=== PATIENT | female | born 1965 | race Caucasian/White ===

== ENCOUNTER 2019-06-11 10:49 | Emergency (ER) | payer OTHER ==
[2019-06-11 12:28] VITALS: BP 113/78
--- NOTE | 2019-06-11 12:33 | UC ---
Truncal Trauma HPI - HPI Summary HPI Summary: WHILE AT WORK YESTERDAY PATIENT TRIPPED ON UNEVEN PAVEMENT AND ROLLED ONTO HER RIGHT SIDE INJURING HER RIGHT ANTERIOR RIB CAGE. DENIES ANY FEVER OR SHORTNESS OF BREATH. PAIN WORSENS WITH MOVEMENT. NOT WORSE WITH DEEP INSPIRATION OR COUGH. - History Of Current Complaint Chief Complaint: UCGeneralIllness Stated Complaint: RIB/CHEST PAIN WC Time Seen by Provider: 06/11/19 11:33 Hx Obtained From: Patient Hx Last Menstrual Period: 04/04/14 Onset/Duration: Sudden Onset, Lasting Days - 1 DAY, Still Present Onset Of Pain: Immediate Severity Initially: Moderate Severity Currently: Moderate Pain Intensity: 5 Pain Scale Used: 0-10 Numeric Mechanism Of Injury: Fall From A Standing Position Aggravating Factor(s): Movement Alleviating factor(s): Rest Associated Signs And Symptoms: Positive: Negative - Allergies/Home Medications Allergies/Adverse Reactions: Allergies Allergy/AdvReac Type Severity Reaction Status Date / Time cephalexin [From Keflex] Allergy Hives Verified 06/11/19 11:51 Sulfa (Sulfonamide Allergy Hives Verified 06/11/19 11:51 Antibiotics) Home Medications: Home Medications Sertraline* [Zoloft*] 50 mg PO DAILY 11/06/18 [History Confirmed 06/11/19] Ibuprofen TAB* [Advil TAB*] 600 mg PO ONCE 06/11/19 [History Confirmed 06/11/19] PMH/Surg Hx/FS Hx/Imm Hx Neurological History: Other - UNSPECIFIED NEUROLOGIC CONDITION Psychological History: Depression - Surgical History Surgical History: Yes Surgery Procedure, Year, and Place: 2008 Benign RT breast lump REMOVED;. 2003 C -section; - Social History Alcohol Use: None Substance Use Type: None Smoking Status (MU): Never Smoked Tobacco Review of Systems All Other Systems Reviewed And Are Negative: Yes Constitutional: Positive: Negative Skin: Positive: Negative Respiratory: Positive: Negative Cardiovascular: Positive: Negative Gastrointestinal: Positive: Negative Musculoskeletal: Positive: Other: - RIGHT RIB CAGE PAIN Physical Exam Triage Information Reviewed: Yes Appearance: Well-Appearing, No Pain Distress, Well-Nourished Vital Signs: Initial Vital Signs Temp 97.4 F 06/11/19 11:52 Pulse 56 06/11/19 11:52 Resp 16 06/11/19 11:52 BP 113/78 06/11/19 11:52 Pulse Ox 98 06/11/19 11:52 Vital Signs Reviewed: Yes Eyes: Positive: Conjunctiva Clear ENT: Positive: Hearing grossly normal Neck: Positive: Supple Respiratory: Positive: No respiratory distress, No accessory muscle use Cardiovascular: Positive: Pulses Normal Abdomen Description: Positive: Soft Musculoskeletal: Positive: ROM Intact, No Edema, Other: - MILDLY TENDER RIGHT ANTERIOR RIB CAGE Neurological: Positive: Alert Psychological: Positive: Age Appropriate Behavior Skin: Negative: Rashes Truncal Trauma Course/Dx - Course Course Of Treatment: PATIENTS PRESENTATION IS MORE CONSISTENT WITH A CONTUSION OF THE RIGHT RIBS THAN WITH ANY ACUTE BONY INJURY. PATIENT HAS NO PAIN WITH DEEP INSPIRATION OR COUGH. MILD PAIN WITH PALPATION TO THE INJURED AREA AND WITH MOVEMENT. NO BRUISING ON EXAM. NO INDICATION FOR ANY IMAGING TODAY. ADVISED PATIENT TO RETURN FOR REEVALUATION IF HER SYMPTOMS DO NOT IMPROVE SHE MAY BENEFIT FROM IMAGING AT THAT TIME. ADVISED REST, DEEP BREATHS TO KEEP LUNGS EXPANDED AND OTC MEDS NEEDED FOR DISCOMFORT. OF NOTE, PATIENT REPORTS EXPOSURE TO A [employer] WHO IS CURRENTLY BEING TESTED FOR COVID19. A RESULT MY ENCOUNTER WITH THIS PATIENT WAS PERFORMED WITH FULL DROPLET/CONTACT PRECAUTION PPE. - Differential Dx/Diagnosis Provider Diagnosis: Contusion of rib on right side Discharge ED - Sign-Out/Discharge Documenting (check all that apply): Patient Departure All imaging exams completed and their final reports reviewed: No Studies - Discharge Plan Condition: Stable Disposition: HOME Patient Education Materials: Rib Contusion (ED) Forms: *Gen. Provider Communication Referrals: Elke Artis OIL DEVELOPER [Primary Care Provider] - If Needed Additional Instructions: YOUR PRESENTATION IS MORE CONSISTENT WITH A SOFT TISSUE INJURY/CONTUSION THAN WITH ANY ACUTE BONY INJURY. NO INDICATION FOR IMAGING TODAY. SEEK REEVALUATION IF YOUR PAIN PERSISTS OR WORSENS YOU MAY BENEFIT FROM IMAGING AT THAT TIME. REST, OTC MEDS NEEDED FOR DISCOMFORT. RIB INJURIES AND FRACTURES: You have been diagnosed as having either bruised or broken ribs. These two injuries are treated in the same way. It will usually take four to six weeks for these injured ribs to heal. Sometimes, rib belts or anesthetic injections of the chest wall help reduce the pain. You should cough or take a deep breath at least every hour or two to prevent lung complications. You should not engage in any strenuous physical activity until released by your physician. The usual rule is "if it hurts, don't do it." Rib fractures can lead to serious lung complications including lung collapse, hemorrhage, and pneumonia. You should go to the ED if any of the following occur: (1) Fever or chills. (2) Persistent cough, coughing up blood, or shortness of breath. (3) Increasing pain. (4) Weakness, lightheadedness, or fainting. Be sure to take slow deep breaths several times daily to help keep your lungs expanded. GO TO THE ER WITHOUT FAIL IF YOU DEVELOP WORSENING SHORTNESS OF BREATH, CHEST PAIN, NAUSEA, SWEATS, DIZZINESS OR ANY OTHER CONCERNING SYMPTOMS. - Billing Disposition and Condition Condition: STABLE Disposition: Home
== END 2019-06-11 12:50 | disposition home or self-care (01) ==
LOC: UCCORT 10:49
DX: S20.211A Contusion of right front wall of thorax, initial encounter (principal); W01.0XXA Fall on same level from slipping, tripping and stumbling without subsequent striking against object, initial encounter; Y92.480 Sidewalk as the place of occurrence of the external cause; Y99.0 Civilian activity done for income or pay; F32.9 Major depressive disorder, single episode, unspecified; Z79.899 Other long term (current) drug therapy; Z88.1 Allergy status to other antibiotic agents; Z88.2 Allergy status to sulfonamides
CPT/HCPCS: 99211; G0463

== ENCOUNTER 2019-06-11 10:56 | Emergency (ER) | payer OTHER ==
--- OUTSIDE RECORDS SUMMARY | 2019-06-11 11:43 | XMS REPORT | Summary of Care ---
:1965 Author Organization [facility] Address [address] [place] [address] Care Team Providers Name Role Phone Elke Artis NP Primary Care Provider Reason for Referral Diagnostic Radiology (Routine) Status Reason Specialty Diagnoses / Referred By Referred To Procedures Contact Contact Authorized Radiology Diagnoses White matter disease Abnormal brain MRI Essential tremor Elke Artis Procedures MR Brain with and without Contrast MR Brain with and without Contrast MALLY Jasso [address] [place] [address] Reason for Visit Diagnostic Radiology (Routine) Status Reason Specialty Diagnoses / Referred By Referred To Procedures Contact Contact Authorized Radiology Diagnoses White matter disease Abnormal brain MRI Essential tremor Elke Artis Procedures MR Brain with and without Contrast MR Brain with and without Contrast MALLY Jasso [address] [place] [address] Encounter Details Date Type Department Care Team Description 05/25/2019 Hospital Encounter MRI Radiology Cancer White matter disease; Center Abnormal brain MRI; [address] [place] [address] Allergies Not on Filedocumented as of this encounter (statuses as of 05/26/2019) Medications Not on filedocumented as of this encounter (statuses as of 05/26/2019) Active Problems Not on filedocumented as of this encounter (statuses as of 05/26/2019) Social History Tobacco Use Types Packs/Day Years Used Date Never Assessed Sex Assigned at Date Recorded Not on file Job Start Date Occupation Industry Not on file Not on file Not on file Travel History Travel Start Travel End No recent travel history available. documented as of this encounter Last Filed Vital Signs Not on filedocumented in this encounter Plan of Treatment Name Type Priority Associated Diagnoses Date/Time MR Brain with and Imaging Routine White matter disease 05/25/2019 1:49 PM without Contrast Abnormal brain MRI EDT Essential tremor Health Maintenance Due Date Last Done Comments MMR Vaccines (1 of 1 - Standard 09/30/1967 series) Varicella Vaccines (1 of 2 - 09/30/1967 2-dose childhood series) DTaP,Tdap,and Td Vaccines (1 - 1973 Tdap) HIV Screening 09/30/1979 Cervical Cancer Screening 5 years 09/30/1987 Breast Cancer Screening 2 years 2016 Colon Cancer Screening 10 yrs 2016 Influenza Vaccine 12/15/2018 Pneumococcal Vaccine: 65+ Years (1 09/30/2031 of 2 - PCV13) HIB Vaccines Aged Out No longer eligible based on patient's age to complete this topic Hepatitis A Vaccines Aged Out No longer eligible based on patient's age to complete this topic Hepatitis B Vaccines Aged Out No longer eligible based on patient's age to complete this topic IPV Vaccines Aged Out No longer eligible based on patient's age to complete this topic Pneumococcal Vaccine: Pediatrics Aged Out No longer eligible based on (0 to 5 Years) and At-Risk patient's age to complete this Patients (6 to 64 Years) topic documented as of this encounter Procedures Procedure Name Priority Date/Time Associated Diagnosis Comments MR BRAIN WITH AND Routine 05/25/2019 1:49 PM White matter disease WITHOUT CONTRAST [id number] EDT Abnormal brain MRI Essential tremor Procedure Note - Interface, Received Via [employer] System - 05/25/2019 4:44 PM EDT EXAMINATION: MR brain with and without contrast. CLINICAL INDICATION: White matter disease, unspecified. Essential and other specified forms of tremor. TECHNIQUE: Multiplanar and multisequence MR images of the brain were obtained on our [employer]ai Intera 1.5 Yeny MRI scanner. The images were acquired under general anesthesia. An anesthesiologist was present throughout the examination. IV CONTRAST: Yes. COMPARISON: MRI of the brain dated 08/11/2018. FINDINGS: Few scattered punctate foci of T2 FLAIR increased signal intensity are seen in bilateral periventricular and subcortical white matter particularly in left frontal region. There is mild interval increase in size of right periventricular lesion which now measures 4 mm from previous 2.5 mm size. Otherwise, there is no interval change in the size or appearance of these lesions when allowing for differences in slice sampling and technique. No new lesions are present. There are no areas of restricted diffusion in DWI/ADC maps. No abnormal foci of susceptibility seen in SWI. The ventricles and cerebral sulci are normal. The basal cisterns are patent. No mass effect , edema or midline shift is seen. The corpus callosum is normal. The septum pellucidum is present. The pituitary gland is not enlarged. The T1 posterior pituitary bright spot is identified. The pineal and cervicomedullary regions are normal. There is no abnormal enhancement following contrast administration. Mucosal thickening is seen in right ethmoidal air cells, sphenoid sinus with central T2 hypointense areas probably representing inspissated secretions. Mastoid air cells are clear. Orbits are unremarkable. Neuro Quant analysis: The hippocampal volume is 8.67 cm3 and is at the 95 normative percentile. The left - right asymmetry index is 15.92. Superior lateral ventricles volume is 32.86 cm3 and lies at 88 normative percentile. Inferior lateral ventricles volume is 1.15 cm3 and lies at 61 normative percentile. Hippocampal occupancy score is 0.88. IMPRESSION: No interval change in size of few scattered foci of T2 FLAIR increased signal intensity in bilateral deep and subcortical white matter particularly on the right frontal region except a single right periventricular lesion which shows mild interval increase in size. Neuro Quant analysis: Hippocampal volume is 8.67 cm3 and is at the 95 normative percentile. Inferior lateral ventricles volume is 1.15 cm3 and lies at 61 normative percentile. documented in this encounter Results Not on filedocumented in this encounter Visit Diagnoses Diagnosis White matter disease Other conditions of brain Abnormal brain MRI Nonspecific (abnormal) findings on radiological and other examination of skull and head Essential tremor Essential and other specified forms of tremor documented in this encounter Administered Medications Medication Order MAR Action Action Date Dose Rate Site gadobutrol (GADAVIST) Given by IV push 05/25/2019 1:39 PM EDT 9 mLs contrast injection 9 mL 9 mL (rounded from 9.07 mL = 0.1 mL/kg 90.7 kg Order-specific weight), Intravenous, 1 TIME IMAGING, 05/25/19 at 1345, For 1 dose, Do not mix or administer in the same IV line with other medications., documented in this encounter
[2019-06-11 12:28] VITALS: BP 113/78
--- NOTE | 2019-06-11 12:40 | UC ---
Back Pain HPI - HPI Summary HPI Summary: PATIENT COMPLAINS OF 2 WEEKS OF LEFT LOW BACK PAIN THAT RADIATES DOWN HER LEFT LEG BUT STOPS AT HER KNEE. DENIES ANY TRAUMA. NO SADDLE ANESTHESIA. NO LOSS OF BOWEL OR BLADDER CONTROL. NOT WORSE WITH SITTING OR WALKING. - History of Current Complaint Chief Complaint: UCBackPain Stated Complaint: LEG/BACK Time Seen by Provider: 06/11/19 11:33 Hx Obtained From: Patient Hx Last Menstrual Period: n/a pt has IUD Onset/Duration: Gradual Onset, Lasting Weeks, Still Present Timing: Constant Severity Initially: Moderate Severity Currently: Moderate Pain Intensity: 4 Pain Scale Used: 0-10 Numeric Character: Sharp Aggravating Factor(s): Movement, Bending Alleviating Factor(s): Rest Associated Signs And Symptoms: Positive: Negative - Allergies/Home Medications Allergies/Adverse Reactions: Allergies Allergy/AdvReac Type Severity Reaction Status Date / Time cephalexin [From Keflex] Allergy Hives Verified 06/11/19 11:51 Sulfa (Sulfonamide Allergy Hives Verified 06/11/19 11:51 Antibiotics) Home Medications: Home Medications Sertraline* [Zoloft*] 50 mg PO DAILY 11/06/18 [History Confirmed 06/11/19] Ibuprofen TAB* [Advil TAB*] 600 mg PO ONCE 06/11/19 [History Confirmed 06/11/19] PMH/Surg Hx/FS Hx/Imm Hx Neurological History: Other - UNSPECIFIED NEUROLOGIC OR RHEUMATOLOGIC DISORDER Psychological History: Depression - Surgical History Surgical History: Yes Surgery Procedure, Year, and Place: 2008 Benign RT breast lump REMOVED;. 2003 C -section; - Social History Alcohol Use: None Substance Use Type: None Smoking Status (MU): Never Smoked Tobacco Review of Systems All Other Systems Reviewed And Are Negative: Yes Constitutional: Positive: Negative Skin: Positive: Negative Respiratory: Positive: Negative Cardiovascular: Positive: Negative Gastrointestinal: Positive: Negative Musculoskeletal: Positive: Other: - PAIN LOW BACK AND LEFT LEG Physical Exam Triage Information Reviewed: Yes Appearance: Well-Appearing, No Pain Distress, Well-Nourished Vital Signs: Initial Vital Signs Temp 97.4 F 06/11/19 11:47 Pulse 56 06/11/19 11:47 Resp 16 06/11/19 11:47 BP 113/78 06/11/19 11:47 Pulse Ox 98 06/11/19 11:47 Vital Signs Reviewed: Yes Eyes: Positive: Conjunctiva Clear ENT: Positive: Hearing grossly normal Neck: Positive: Supple Respiratory: Positive: No respiratory distress, No accessory muscle use Cardiovascular: Positive: Pulses Normal Musculoskeletal: Positive: ROM Intact, No Edema Neurological: Positive: Alert, Other: - NEG STRAIGHT LEG RAISE Psychological: Positive: Age Appropriate Behavior Skin: Negative: Rashes Back Pain Course/Dx - Course Course Of Treatment: PATIENT'S PAIN MAY BE A MANIFESTATION OF MERALGIA PARESTHETICA VERSUS A FLAREUP OF HER NONSPECIFIC NEUROLOGIC/RHEUMATOLOGIC DISORDER FOR WHICH SHE IS CURRENTLY BEING EVALUATED. DISCUSSED WITH PATIENT ETIOLOGY AND POSSIBLE SOLUTIONS FOR MERALGIA PARESTHETICA. ALSO ADVISED PATIENT TO FOLLOW-UP WITH HER NEUROLOGIST. OF NOTE, PATIENT REPORTS EXPOSURE TO A [employer] WHO IS CURRENTLY BEING TESTED FOR COVID19. A RESULT MY ENCOUNTER WITH THIS PATIENT WAS PERFORMED WITH FULL DROPLET/CONTACT PRECAUTION PPE. - Differential Dx/Diagnosis Provider Diagnosis: Meralgia paresthetica of left side Discharge ED - Sign-Out/Discharge Documenting (check all that apply): Patient Departure All imaging exams completed and their final reports reviewed: No Studies - Discharge Plan Condition: Stable Disposition: HOME Patient Education Materials: Meralgia Paresthetica (ED) Referrals: Elke Artis NP [Primary Care Provider] - If Needed Additional Instructions: MERALGIA PARESTHETICA Meralgia paresthetica is the term used to describe the syndrome of pain, altered sensation, or both in the front/side of the thigh associated with compression of the lateral femoral cutaneous nerve. The majority of meralgia paresthetica cases result from entrapment of the lateral femoral cutaneous nerve as it passes under the inguinal ligament in the groin. The most frequent associated conditions are obesity, diabetes mellitus, and older age. Meralgia paresthetica is a self-limited, benign disease in most patients. More than 90 percent of patients respond to conservative measures alone, although recurrent symptoms are common. Avoid tight garments. Work on weight loss. For patients with symptoms that persist for more than one to two months despite conservative measures, anticonvulsants such as carbamazepine or gabapentin, can be helpful in reducing neuropathic pain. A local nerve block can also be considered. Rarely, surgical nerve decompression or sectioning is necessary. FOLLOW-UP WITH YOUR NEUROLOGIST FOR FURTHER EVALUATION GO TO THE ED WITHOUT FAIL IF YOU DEVELOP WORSENING NUMBNESS/TINGLING IN YOUR LEGS, NUMBNESS IN THE GENITAL REGION, LOSS OF BOWEL/BLADDER CONTROL, INTOLERABLE PAIN OR ANY OTHER CONCERNING SYMPTOMS. - Billing Disposition and Condition Condition: STABLE Disposition: Home
== END 2019-06-11 12:50 | disposition home or self-care (01) ==
LOC: UCCORT 10:56
DX: G57.12 Meralgia paresthetica, left lower limb (principal); F32.9 Major depressive disorder, single episode, unspecified; Z79.899 Other long term (current) drug therapy; Z88.1 Allergy status to other antibiotic agents; Z88.2 Allergy status to sulfonamides
CPT/HCPCS: 99211; G0463